=== PATIENT | female | born 1970 | race Caucasian/White ===

== ENCOUNTER 2024-01-04 22:16 | Inpatient (IN) | payer BC, SELFPAY ==
[2024-01-04] VITALS (9 sets, daily range): BP systolic 107–141; BP diastolic 59–90; BMI 20.6
[2024-01-04 14:07] LABS: % Basophils 0.4 % (0-2); % Eosinophils 0.8 % (0-6); % Immature Granulocytes 0.3 % (0-0.5); % Lymphocytes 16.1 % (20.5-51.1); % Monocytes 7.3 % (1.7-9.3); % Neutrophils 75.1 % (42.2-75.2); Absolute Basophils 0.1 10^3/uL (0-0.2); Absolute Eosinophils 0.1 10^3/uL (0-0.7); Absolute Monocytes 0.9 10^3/uL (0.1-0.6); Absolute Neutrophils 9.4 10^3/uL (1.4-6.5); Hematocrit 45.3 % (37.0-47.0); Hemoglobin 15.7 g/dL (12.0-16.0); Mean Corp Hgb Conc. 34.7 g/dL (33.0-37.0); Mean Corpuscular Hgb 28.6 pg (27.0-31.0); Mean Corpuscular Volume 82.7 fL (81.0-99.0); Mean Platelet Volume 10.2 fL (7.4-10.4); Nucleated Red Blood Cells % 0 %; Platelet Count 412 10^3/uL (130-400); Red Blood Cell Count 5.48 10^6/uL (4.20-5.40); White Blood Cell Count 12.5 10^3/uL (4.8-10.8)
[2024-01-04 14:25] LABS: ALT (SGPT) 22 U/L (0-35); AST (SGOT) 32 U/L (14-36); Albumin 4.7 g/dl (3.5-5.0); Alkaline Phosphatase 130 U/L (38-126); Blood Urea Nitrogen 15 mg/dl (7-17); Calcium 9.9 mg/dl (8.4-10.2); Carbon Dioxide 23 mmol/L (22-30); Chloride 101 mmol/L (98-107); Glucose 112 mg/dl (70-99); Lipase 299 U/L (23-300); Potassium 4.2 mmol/L (3.5-5.1); Sodium 134 mmol/L (135-145); Total Bilirubin 1.8 mg/dl (0.2-1.3); Total Protein 7.9 g/dl (6.3-8.2); eGFR > 60.00
--- NOTE | 2024-01-04 17:06 | ED.GENMED ---
History of Present Illness
General
Chief Complaint: Abdominal Symptoms
Source: patient
Exam Limitations: none
Time Seen by Provider: 01/04/24 17:06
Nursing documentation reviewed up to this point in time: agreed with
Travel History
Have you had any contact with someone who has COVID-19?: No
Do you have any symptoms of coronavirus? Fever > 100 degrees, chills, cough, shortness of breath, sore throat, loss of taste or smell, muscle aches, or headache?: No
History of Present Illness
History of Present Illness:
53-year-old female with history of hysterectomy, constipation states 2 nights ago she ate a large bag of almonds and since then she is to milligrams and increasing abdominal pain, and has had no bowel movement since. She tried 3 Dulcolax,
suppository, 2 fleets enemas with no bowel movement. She is also doubled over in pain yesterday and today anytime she tries to drink or eat anything she vomits it back up.
Past History
Past History
ED Past Surgical History: Gynecological (Hysterectomy) and Orthopedic
Social History
Tobacco: Non-smoker
Alcohol: Occasional
Personal:
Living: with family
Employment: Employed
Review of Systems
Review of Systems
Allergies reviewed?: Yes
All Other Systems: ROS reviewed and negative except as documented in HPI and ROS
Constitutional: Denies fever
Respiratory: Denies trouble breathing
Cardiac: Denies chest pain
ABD/GI: Reports abdominal pain, nausea, vomiting and constipated
: Denies dysuria or difficulty voiding
Musculoskeletal: Reports no symptoms
Skin: Reports no symptoms
Neurological: Reports no symptoms
Phy Exam
Physical Exam
Physical Exam:
GENERAL: No acute distress. A&Ox3.
CONSTITUTIONAL: Afebrile.
EYES: Clear, conjunctivae normal
ENMT: Dry mucus membranes
RESPIRATORY: Regular respirations, nonlabored, lungs clear.
CARDIOVASCULAR: Regular rate and rhythm, no murmurs, no rubs.
GI: Soft, generally tender to mild palpation, worse pain across upper abdomen, no audible bowel sounds BS
MUSCULOSKELETAL: Moves with ease. Well perfused.
SKIN: Warm, dry, pink
PSYCH: Normal mood and affect. Well kept, interactive and appropriate
NEUROLOGIC: Awake, alert and oriented. No focal neurological deficits
Course
Orders/Labs/Results
Orders:
Orders
01/04/24 14:00
Complete Blood Count/With Diff Urgent
Comprehensive Metabolic Panel Urgent
Lipase Urgent
01/04/24 Dinner
NPO
Allow oral meds: Yes
Allow clear liquids: Sips of Clears
01/04/24 17:02
CT Abd/Pel (IV only)-DH only Urgent
Comment: pain, No BM since ate large bag almonds 2 days ago
Reason For Exam: severe epigastric to gen abd pain
01/04/24 17:05
0.9% Sodium Chloride 1000 ml [Nss] 1,000 ml IV BOLUS
01/04/24 17:09
Ketorolac [Toradol] 15 mg IV NOW STA
Ondansetron Injectable [Zofran] 4 mg IV NOW STA
01/04/24 21:24
Admit/Transfer Patient As Directed
Co-Sign Provider:
Level of Care: Inpatient admission
Assign to:: Medical/Surgical
Physician / Group: polina
Diagnosis: enteritis
Reason for Hospitalization: enteritis
Expected length of stay greater than two midnights?: Yes
ELOS- Estimated Length of Stay in days: 2
I certify the patient meets the requirements for IP care: Yes
Code Status As Directed
Resuscitation Status: Full Code
01/04/24 21:27
Stool Culture Routine
DEBBI Source: Feces/Stool
Specimen Description:
01/04/24 23:01
0.9% Sodium Chloride 1000 ml [Nss] 1,000 ml IV 100 mls/hr
HYDROmorphone [Dilaudid] 0.5 mg IV Q4HPRN PRN
Ondansetron Injectable [Zofran] 4 mg IV Q6HPRN PRN
Pregabalin [Lyrica] 50 mg PO TID PRN
01/04/24 23:01
Activity As Directed
Activity Level: As Tolerated
Pneumatic Compression Sleeves As Directed
Type: Knee high
Vital Signs As Directed
Frequency: Per unit guidelines
DX Deep Vein Thrombosis Video Routine
01/05/24 06:00
Complete Blood Count/With Diff IN AM
Comprehensive Metabolic Panel IN AM
01/05/24 08:00
Celecoxib [Celebrex] 200 mg PO DAILY
Doxycycline [Vibramycin] 100 mg PO DAILY
Estradiol [Estrace] 0.5 mg PO DAILY
Abnormal Lab Results
01/04/24
14:00
WBC 12.5 H 10^3/uL
(4.8-10.8)
RBC 5.48 H 10^6/uL
(4.20-5.40)
Plt Count 412 H 10^3/uL
(130-400)
Absolute Neuts (auto) 9.4 H 10^3/uL
(1.4-6.5)
Absolute Monos (auto) 0.9 H 10^3/uL
(0.1-0.6)
Lymphocytes % 16.1 L %
(20.5-51.1)
Sodium 134 L mmol/L
(135-145)
Glucose 112 H mg/dl
(70-99)
Total Bilirubin 1.8 H mg/dl
(0.2-1.3)
Alkaline Phosphatase 130 H U/L
(38-126)
01/04/24 14:00
01/04/24 14:00
Vital Signs
Initial and Last Documented VS:
Initial Vital Signs
Temp Pulse Resp BP Pulse Ox
98.4 F 95 16 141/90 98
01/04/24 13:50 01/04/24 13:50 01/04/24 13:50 01/04/24 13:50 01/04/24 13:50
Last Documented Vital Signs
Temp Pulse Resp BP Pulse Ox
98.4 F 78 16 107/62 99
01/04/24 13:50 01/04/24 21:21 01/04/24 13:50 01/04/24 23:00 01/04/24 23:45
MDM/Problems Addressed
Differential Diagnosis Includes:
Bowel obstruction, constipation
MDM/Problems Addressed:
53-year-old female with history of hysterectomy, constipation states 2 nights ago she ate a large bag of almonds and since then she is to milligrams and increasing abdominal pain, and has had no bowel movement since. She tried 3 Dulcolax,
suppository, 2 fleets enemas with no bowel movement. She is also doubled over in pain yesterday and today anytime she tries to drink or eat anything she vomits it back up.
01/04/2024 1707 PM
CBC, CMP, mildly elevated WBC otherwise no clinically significant abnormality.
Lipase within normal limits
01/04/20241957 PM
CT abdomen pelvis with IV only contrast radiology report read: IMPRESSION: There is significant abnormal wall thickening and enhancement involving small bowel loops, and there appears to be diffuse involvement, although greater involving the mid to
distal small bowel. Findings are compatible with enteritis. Infectious enteritis could be the leading consideration. However, inflammatory bowel disease such as Crohn's disease could also result in this appearance.
There is a small to moderate amount of mesenteric edema as well as free fluid within the pelvis. Small amount of free fluid anterior to the liver in the right upper quadrant.
Distended gallbladder with no evidence for calcified gallstones.
01/04/20242038 PM
Patient is comfortable but does not feel comfortable going home as the pain comes back frequently.
No vomiting since arrival
Plan: Admit: Abdominal pain, mesenteric edema, free fluid within the pelvis.
Case discussed with Dr. Hinkle who agrees with plan
Hospitalist notified of admission
�
*Critical Care Note
Total Time (30-74mins, 75-104mins- exclusive of procedures): Not Applicable
ED Attending Note
-
Portions of this chart may have been created with voice recognition software.� Occasional wrong word or��sound alike� substitutions may have occurred due to the inherent limitations of voice recognition software.
Discharge Plan
Departure
Patient Disposition: Admit
Date of Disposition: 01/04/24
Time of Disposition: 20:04
Admit to: Med/Surg
Presentation/result/management discussed w/ accepting MD/DO: Hospitalist
Condition: Fair
Discharge Problem:
Enteritis, mesenteric edema, Abdominal pain
Interventions
Interventions:
*Risk Screen - Suicide Last Done: 01/04/24 17:19
*General Assessment Last Done: 01/04/24 17:19
*Neglect/Abuse Screening Last Done: 01/04/24 17:19
ED- Fall Risk Assessment Last Done: 01/04/24 17:19
*ED COVID-19 Vaccine History Last Done: 01/04/24 13:50
*Nursing Disposition Last Done: 01/04/24 23:47
LQ-Giiosl-Jfnvcvwqac Assessment Last Done: 01/04/24 17:19
Discharge Date and Time
Discharge Date/Time: 01/04/24 23:47
[2024-01-04] MEDS: NSS 1000 IV (17:14)
[2024-01-04] MEDS: ZOFRAN 4 MG IV (17:16)
[2024-01-04] MEDS: TORADOL 15 MG IV (17:17)
--- NOTE | 2024-01-04 21:28 | HPS.HSE ---
Family Physician
-
Family Physician: Sly Gottlieb PA-C
Chief Complaint
-
abdominal pain
History of Present Illness
53-year-old female past medical history of cervical cancer status hysterectomy in 2002, ovarian cyst removal, peanut allergy, constipation, chronic back pain, rosacea presenting with abdominal pain starting 2 days ago after eating a large bag of
almonds. Pain got worse since then described as waves of pain across her belly. She had a few episodes of vomiting since then when she tried to eat or drink. She denies any bowel movement afterwards and try taking 3 Dulcolax, suppository, 2 Fleet
enema with a small bowel movement this morning. Stool was dark but she denies any mucus or blood in the stool. She had chills but denied any fever.
Patient gets abdominal pain and bloating if she eats any peanut products.
She denies any recent travel history. She denies eating any restaurant or leftover food.
She has a sister with colitis which she thinks may be ulcerative colitis.
Denies any smoking or alcohol use or marijuana or any other drugs.
Medical History
Past Medical History
Past Medical History: Reports Other (cervical cancer status hysterectomy in 2002, ovarian cyst removal, peanut allergy, constipation, chronic back pain, rosacea)
Past Surgical History: Reports Other
Social History
Tobacco: Non-smoker
Alcohol: None
Drug: None
Family History
Family History: Not pertinent
Allergies / Home Medications
Allergies reflects when Allergies were last updated in [facility].
Home Medications with original date entered in [facility]
Allergy/Medication List:
Allergies
Allergy/AdvReac Type Severity Reaction Status Date / Time
No Known Allergies Allergy Verified 01/04/24 13:52
Home Medications
celecoxib 200 mg capsule 200 mg PO DAILY 01/04/24
doxycycline monohydrate 100 mg capsule 100 mg PO DAILY 01/04/24
estradiol 0.5 mg tablet 0.5 mg PO DAILY 01/04/24
pregabalin 50 mg capsule 50 mg PO TID PRN back spasms 01/04/24
Review of Systems
-
History Source: Patient
A 12 point ROS was completed and negative except as noted: Yes
Constitutional: Reports No Symptoms
EENT: Reports No Symptoms
Respiratory: Reports No Symptoms
Cardiac: Reports No Symptoms
Abdomen/GI: Reports No Symptoms
: Reports No Symptoms
Musculoskeletal: Reports No Symptoms
Skin: Reports No Symptoms
Neurological: Reports No Symptoms
Endocrine: Reports No Symptoms
Hematologic/Lymphatic: Reports No Symptoms
Psych: Reports No Symptoms
Physical Exam
Vital Signs
Vital Signs
Temp Pulse Resp BP Pulse Ox
98.4 F 78 16 114/59 98
01/04/24 13:50 01/04/24 21:21 01/04/24 13:50 01/04/24 21:00 01/04/24 21:15
Physical Exam
General: Well Developed, Well Nourished and No Apparent Distress
HEENT: NormoCephalic, Moist mucous membranes and Atraumatic
Respiratory: Clear
Cardiac: S1/S2 and Regular Rhythm; No Murmur or Rub
GI: Soft, Non Distended, Normal Bowel Sounds and Tender; No Organomegaly
Rectal: Deferred by Provider
Musculoskeletal: No Clubbing, No Cyanosis and No Edema
Skin: No Rash
Neuro: Nonfocal/grossly intact
Laboratory Results
-
01/04/24 14:00
01/04/24 14:00
Laboratory Results
Total Bilirubin 1.8 mg/dl (0.2-1.3) H 01/04/24 14:00
AST 32 U/L (14-36) 01/04/24 14:00
ALT 22 U/L (0-35) 01/04/24 14:00
Alkaline Phosphatase 130 U/L (38-126) H 01/04/24 14:00
Lipase 299 U/L (23-300) 01/04/24 14:00
Data Reviewed
-
Lab Data: Labs Reviewed by me
Old Records: Reviewed
Impression/Plan
-
IMPRESSION:
PLAN:
# Acute enteritis likely infectious versus inflammatory
# Constipation
-Leukocytosis on labs
-CT abdomen shows diffusely abnormal small bowel loops with wall thickening and enhancement with small to moderate mesenteric edema
-N.p.o.
-IV fluids
-Zofran, Dilaudid for nausea and pain
-Check stool culture if able
-Consider antibiotic and GI consult if no improvement with conservative measures
Cervical cancer status post hysterectomy 2002
Ovarian cyst removal
Chronic back pain
-Continue celecoxib, pregabalin
Rosacea
-Continue doxycycline
Full code
DVT prophylaxis�SCDs
N.p.o.
[2024-01-05 00:10] VITALS: BP 134/71
[2024-01-05 00:16] VITALS: BMI 20.5
[2024-01-05] MEDS: NSS 1000 IV ×2 (00:54→11:24)
[2024-01-05] MEDS: DILAUDID 0.5 MG IV ×3 (01:15→18:11)
[2024-01-05 05:51] LABS: % Basophils 0.7 % (0-2); % Eosinophils 3.3 % (0-6); % Immature Granulocytes 0.1 % (0-0.5); % Lymphocytes 20.3 % (20.5-51.1); % Monocytes 9.3 % (1.7-9.3); % Neutrophils 66.3 % (42.2-75.2); Absolute Basophils 0.1 10^3/uL (0-0.2); Absolute Eosinophils 0.2 10^3/uL (0-0.7); Absolute Lymphocytes 1.4 10^3/uL (1.2-3.4); Absolute Monocytes 0.7 10^3/uL (0.1-0.6); Absolute Neutrophils 4.6 10^3/uL (1.4-6.5); Hematocrit 35.6 % (37.0-47.0); Hemoglobin 12.2 g/dL (12.0-16.0); Mean Corp Hgb Conc. 34.3 g/dL (33.0-37.0); Mean Corpuscular Hgb 28.5 pg (27.0-31.0); Mean Corpuscular Volume 83.2 fL (81.0-99.0); Mean Platelet Volume 10.3 fL (7.4-10.4); Nucleated Red Blood Cells % 0 %; Platelet Count 273 10^3/uL (130-400); Red Blood Cell Count 4.28 10^6/uL (4.20-5.40); Red Cell Dist. Width 13.2 % (11.5-14.5)
[2024-01-05 06:06] LABS: ALT (SGPT) 18 U/L (0-35); AST (SGOT) 25 U/L (14-36); Albumin 3.3 g/dl (3.5-5.0); Alkaline Phosphatase 83 U/L (38-126); Blood Urea Nitrogen 18 mg/dl (7-17); Calcium 8.5 mg/dl (8.4-10.2); Carbon Dioxide 24 mmol/L (22-30); Chloride 106 mmol/L (98-107); Estimated Creatinine Clearance 114 ml/min; Glucose 81 mg/dl (70-99); Potassium 3.9 mmol/L (3.5-5.1); Sodium 135 mmol/L (135-145); Total Bilirubin 1.5 mg/dl (0.2-1.3); Total Protein 5.9 g/dl (6.3-8.2); eGFR > 60.00
[2024-01-05 07:34] VITALS: BP 122/70
[2024-01-05] MEDS: VIBRAMYCIN 100 MG PO (08:22)
[2024-01-05] MEDS: CELEBREX 200 MG PO (08:22)
[2024-01-05] MEDS: ESTRACE 0.5 MG PO (08:23)
--- NOTE | 2024-01-05 11:15 | W.PN.HOSP.TC ---
Today's Communication/Plan
-
see bold
Assessment / Plan
Assessment / Plan
Gen: NAD, AAOx3.
Eyes: EOMI, PERRLA, no scleral icterus.
Neck: supple.
CV: RRR, +S1/S2, no m/r/g.
Resp: CTAB, no rales, wheezes, or rhonchi.
Abd: +BS, soft, tenderness to palpation greatest in the left, ND
Skin: No rashes.
Neuro: CN 2-12 intact, non-focal.
Psych: Normal mood and affect.
CT A/P: There is significant abnormal wall thickening and enhancement involving small bowel loops, and there appears to be diffuse involvement, although greater involving the mid to distal small bowel. Findings are compatible with enteritis.
Infectious enteritis could be the leading consideration. However, inflammatory bowel disease such as Crohn's disease could also result in this appearance. There is a small to moderate amount of mesenteric edema as well as free fluid within the
pelvis. Small amount of free fluid anterior to the liver in the right upper quadrant. Distended gallbladder with no evidence for calcified gallstones.
Acute enteritis:
-with Constipation
-CT A/P above
-likely infectious versus inflammatory
-Leukocytosis, POA, resolved
-CT abdomen shows diffusely abnormal small bowel loops with wall thickening and enhancement with small to moderate mesenteric edema
-NPO/IVFs
-Zofran, Dilaudid for nausea and pain
-Check stool culture if able (no BM since admission)
-c/s GI
Other problems:
Cervical cancer status post hysterectomy 2002
Ovarian cyst removal
Chronic back pain: Continue celecoxib, pregabalin
Rosacea: Continue doxycycline
FULL/SCDs
Anticipated Discharge: 24 - 48 hours
Subjective/Interval History
-
Date of Service: January 05, 2024
Still with abdominal pain and cramping.
Objective Data
-
Labs:
Laboratory Results
01/05/24
05:30
WBC 7.0
Hgb 12.2 D
Hct 35.6 L
Plt Count 273 D
Sodium 135
Potassium 3.9
Chloride 106
Carbon Dioxide 24
BUN 18 H
Creatinine 0.6
Glucose 81
Calcium 8.5
Total Bilirubin 1.5 H
AST 25
ALT 18
Alkaline Phosphatase 83
Vital Signs:
Vital Signs
Temp Pulse Resp BP Pulse Ox
98.9 F 78 17 122/70 97
01/05/24 07:34 01/05/24 07:34 01/05/24 07:34 01/05/24 07:34 01/05/24 08:15
I&O
01/04/24 01/05/24 01/06/24
06:59 06:59 06:59
Intake Total 600 / 600
Balance 600 / 600
--- NOTE | 2024-01-05 11:48 | CON.GI ---
Addendum entered and electronically signed by Chery Wood Do, MD 01/05/24 15:02:
I saw and examined the patient.
The CHEMICAL WASTE MANAGEMENT TECHNICIAN's note was reviewed and I agree with the note.
Comment: Ramya Castillo is a 53yo W with h/o cervical ca s/p hysterectomy and chronic abx use for rosacea who was admitted for acute epigastric abd pain. She denies any triggers other than recently eating almonds. She has no change in diet, new
meds, or travel. She feels certain positions laying worsens the pain. She used OTC bisacodyl, enema and miralax without improvement. Exam VSS, diffuse TTP in epigastric area. CTAP IV contrast There is significant abnormal wall thickening and
enhancement involving small bowel loops, and there appears to be diffuse involvement, although greater involving the mid to distal small bowel. Findings are compatible with enteritis. Infectious enteritis could be the leading consideration. However,
inflammatory bowel disease such as Crohn's disease could also result in this appearance.
Impression
- Acute enteritis of small bowel with pain
ddx includes infectious, less likely crohns given acute onset and normal Hbg
- h/o cervical ca s/p hysterectomy
- Chronic low back pain
- cLBP
Recommendations
- Stool studies pending collection
- Check fecal calprotectin
- C/w IVF and bowel rest
- Pain management per primary team
- Per pt colonoscopy at age 50 was unremarkable at [facility]
Will follow with you
Original Note:
Consultation
-
Date/Time Consultation Requested: 01/05/24 1120
Date/Time Consultation Performed: 01/05/24 1140
Requesting Provider: Robert Tomas MD
Performing Provider: THIERRY Garibay, Chery Ramirez MD
Reason for Consultation: enteritis
Medical History
Chief Complaint / HPI
Chief Complaint: abdominal pain
History of Present Illness:
Pt is a 53yo with hx cervical CA with prior hysterectomy, ovarian cyst removal, arthritis with chronic Celebrex use, constipation, chronic back pain, rosacea with chronic Doxycycline use, peanut allergy with onset of abdominal pain after eating
almonds. Pt also related sister with ? ulcerative colitis. Ct on admission concern for wall thickening and enhancement of SB loops greater mid to distal SB concern for enteritis. Also noted small to moderate mesenteric edema as well as free
fluid in pelvis and distended Gallbladder.
Pt states she will get intermittent bloating and abdominal pain after eating peanuts. This episode was worse with nausea, vomiting then feeling of constipation. She tried to takes laxatives but vomited miralax and still no stools since that
time. Still still persists with some upper abdominal pain and limited ability to tolerate even clear liquids. She does have some chronic constipation and noted small amount of dark stool after laxative but minimal stools since admission. Last
colonoscopy normal about 2 years ago recall as normal.
Past Medical History
Past Medical History: Cancer (cerivical ca) and Other (chronic back pain, constipation, rosacea, ? peanut allergy)
Past Surgical History: Gynecological (hysterectomy)
Social History
Tobacco: Non-Smoker
Alcohol: Occasional
Drug: None
Personal: Other (fiancee)
Living: Other (ancee)
Employment: Employed
Family History
Family History: Other (sister with polyps and ? ulcerative colitis )
Allergies / Home Medications
Allergy/AdvReac Type Severity Reaction Status Date / Time
No Known Allergies Allergy Verified 01/04/24 13:52
Medication Instructions Recorded
celecoxib 200 mg capsule 200 mg PO DAILY 01/04/24
doxycycline monohydrate 100 mg 100 mg PO DAILY 01/04/24
capsule
estradiol 0.5 mg tablet 0.5 mg PO DAILY 01/04/24
pregabalin 50 mg capsule 50 mg PO TID PRN back spasms 01/04/24
Review of Systems
-
History Source: Patient
Constitutional: Reports Weight Loss (few lbs )
EENT: Reports No Symptoms
Respiratory: Reports No Symptoms
Cardiac: Reports No Symptoms
Abdomen/GI: Reports Abdominal Pain, Nausea, Vomiting and Constipated
: Reports No Symptoms
Musculoskeletal: Reports Other (chronic back pain)
Skin: Reports No Symptoms
Neurological: Reports No Symptoms
Endocrine: Reports No Symptoms
Hematologic/Lymphatic: Reports No Symptoms
Vital Signs
Temp Pulse Resp BP Pulse Ox
98.9 F 78 17 122/70 97
01/05/24 07:34 01/05/24 07:34 01/05/24 07:34 01/05/24 07:34 01/05/24 08:15
Physical Exam
Exam
General: Well Developed, Well Nourished and Other (still with some abdominal pain )
HEENT: Normocephalic and Anicteric
Respiratory: Clear
Cardiac: Regular Rhythm
GI: Soft, Non Tender and Non Distended
Musculoskeletal: No Clubbing and No Cyanosis
Skin: Warm and Dry
Neuro: Awake, Alert and AO x 3
Psych: Calm
Results
WBC 7.0 10^3/uL (4.8-10.8) 01/05/24 05:30
Hgb 12.2 g/dL (12.0-16.0) D 01/05/24 05:30
Hct 35.6 % (37.0-47.0) L 01/05/24 05:30
MCV 83.2 fL (81.0-99.0) 01/05/24 05:30
Plt Count 273 10^3/uL (130-400) D 01/05/24 05:30
Absolute Neuts (auto) 4.6 10^3/uL (1.4-6.5) 01/05/24 05:30
Sodium 135 mmol/L (135-145) 01/05/24 05:30
Potassium 3.9 mmol/L (3.5-5.1) 01/05/24 05:30
Chloride 106 mmol/L (98-107) 01/05/24 05:30
Carbon Dioxide 24 mmol/L (22-30) 01/05/24 05:30
BUN 18 mg/dl (7-17) H 01/05/24 05:30
Creatinine 0.6 mg/dL (0.6-1.0) 01/05/24 05:30
Calcium 8.5 mg/dl (8.4-10.2) 01/05/24 05:30
Total Bilirubin 1.5 mg/dl (0.2-1.3) H 01/05/24 05:30
AST 25 U/L (14-36) 01/05/24 05:30
ALT 18 U/L (0-35) 01/05/24 05:30
Alkaline Phosphatase 83 U/L (38-126) 01/05/24 05:30
Lipase 299 U/L (23-300) 01/04/24 14:00
Diagnostic Image Results:
CT Abd/Pel�
IMPRESSION: There is significant abnormal wall thickening and enhancement involving small bowel loops, and there appears to be diffuse involvement, although greater involving the mid to distal small bowel. Findings are compatible with enteritis.
Infectious enteritis could be the leading consideration. However, inflammatory bowel disease such as Crohn's disease could also result in this appearance.
There is a small to moderate amount of mesenteric edema as well as free fluid within the pelvis. Small amount of free fluid anterior to the liver in the right upper quadrant.
Distended gallbladder with no evidence for calcified gallstones.
Prior GI Procedures:
EGD: none
Colonoscopy: 2 years ago normal
Assessment / Plan
-
Pt is a 53yo with hx cervical CA with prior hysterectomy, ovarian cyst removal, arthritis with chronic Celebrex use, constipation, chronic back pain, rosacea with chronic Doxycycline use, peanut allergy with onset of abdominal pain after eating
almonds. Pt also related sister with ? ulcerative colitis. Ct on admission concern for wall thickening and enhancement of SB loops greater mid to distal SB concern for enteritis. Also noted small to moderate mesenteric edema as well as free
fluid in pelvis and distended Gallbladder.
-enteritis
-nausea/vomiting
-constipation
other medical problems:
-cervical CA with prior hysterectomy
-ovarian cyst removal
-arthritis on chronic Celebrex
-rosacea on chronic Doxy
PLAN:
etiology of enteritis related to infectious etiology, IBD with ? family hx UC, medication effect with chronic Doxy and Celebrex vs other
cont supportive care with IVF, diet as tolerated
consider MRE OP vs Inpatient if not improving
consider eventual repeat colonoscopy if not improving to eval distal SB for signs of chronic IBD
pain control per hospitalist
discussed side effect of chronic Doxy and celebrex use
-
-
Thank you for consultation and allowing me to participate in the patient's care. Please call the transplant surgeon GI physician during the after hours with any questions or concerns.
[2024-01-05 15:00] VITALS: BP 111/66
[2024-01-05 23:49] VITALS: BP 101/60
[2024-01-06] MEDS: NSS 1000 IV ×2 (02:21→18:28)
[2024-01-06] MEDS: DILAUDID 0.5 MG IV (06:48)
[2024-01-06 07:00] VITALS: BP 114/71
[2024-01-06] MEDS: VIBRAMYCIN 100 MG PO (08:19)
[2024-01-06] MEDS: ESTRACE 0.5 MG PO (08:19)
[2024-01-06] MEDS: CELEBREX 200 MG PO (08:19)
--- NOTE | 2024-01-06 08:32 | CM ---
patient lives with in a 2 story house,she is totally independent and has never had a vn or been to ip rehab in the past.patient with a hx of cervical ca sp hysterectomy,chronic abx use for tx of rosacea and constipation is adm with abd
pain.she is on po abx.patient will have no needs when discharged home.
--- NOTE | 2024-01-06 09:45 | W.PN.GI.CBS2 ---
Addendum entered and electronically signed by Starr Mcconnell DO 01/06/24 17:55:
Patient seen and examine independently of THIERRY. I agree with her note with my additions below
Avelina is a 53-year-old female with no significant past medical history other than arthritis and rosacea taking Celebrex and doxycycline who came in with acute onset abdominal pain with nausea and vomiting but no diarrhea. At baseline she has
some chronic constipation and moves her bowels every 2 to 3 days with [place] stool scale #1. She takes MiraLAX on occasion for this. She is up-to-date with colonoscopy. She has no chronic GI symptoms other than constipation.
CT scan here in the emergency room with IV contrast only on 04 January shows diffuse small bowel thickening, initially had a leukocytosis which has since resolved.. She was started on clear liquid diet tonight and is tolerating it well. She feels
like she would like to try and have a bowel movement and has been drinking MiraLAX and did have some mild relief with the suppository.
Would avoid Dilaudid unless her pain is severe, consider sending like tramadol
Check CRP in the morning
No significant stools to collect
Advance diet to soft for the morning
If she tolerates a soft diet and pain is controllable, okay for discharge as this is most likely infectious considering its acuity
Original Note:
Today's Communication / Plan
-
CBC, BMP
Continue liquids as tolerated
Assessment / Plan
-
Pt is a 53yo with hx cervical CA with prior hysterectomy, ovarian cyst removal, arthritis with chronic Celebrex use, constipation, chronic back pain, rosacea with chronic Doxycycline use, peanut allergy with onset of abdominal pain after eating
almonds. Pt also related sister with ? ulcerative colitis. Ct on admission concern for wall thickening and enhancement of SB loops greater mid to distal SB concern for enteritis. Also noted small to moderate mesenteric edema as well as free
fluid in pelvis and distended Gallbladder.
-enteritis
-nausea/vomiting
-constipation
other medical problems:
-cervical CA with prior hysterectomy
-ovarian cyst removal
-arthritis on chronic Celebrex
-rosacea on chronic Doxy
PLAN:
-Repeat CBC, BMP this am
-If with increase in abd pain or distention repeat abdominal imaging.
-Check fecal calpro, stool studies
-etiology of enteritis related to infectious etiology, IBD with ? family hx UC, medication effect with chronic Doxy and Celebrex vs other
-consider MRE OP vs Inpatient if not improving
-consider eventual repeat colonoscopy if not improving to eval distal SB for signs of chronic IBD
-pain control per hospitalist, limit narcotics if possible
-discussed side effect of chronic Doxy and celebrex use
Subjective
Subjective
Date of Service: January 06, 2024
Patient states that she has decreased pain today. She is tolerating some sips of water. She has no nausea or vomiting. She is passing some flatus but no BM yet. She states that her discomfort has moved from the epigastric area to more of the central
abdomen area. She was able to ambulate the hallways and she heard 'gurgling in her abdomen'. She continues on IVF. No labs today.
Objective
Data Reviewed
Laboratory Data:
Laboratory Results
01/05/24 05:30
01/05/24 05:30
Laboratory Results
Total Bilirubin 1.5 mg/dl (0.2-1.3) H 01/05/24 05:30
AST 25 U/L (14-36) 01/05/24 05:30
ALT 18 U/L (0-35) 01/05/24 05:30
Alkaline Phosphatase 83 U/L (38-126) 01/05/24 05:30
Lipase 299 U/L (23-300) 01/04/24 14:00
Vital Signs and I&O:
Vital Signs
Temp Pulse Resp BP Pulse Ox
98.3 F 74 18 114/71 99
01/06/24 07:00 01/06/24 07:00 01/06/24 07:00 01/06/24 07:00 01/06/24 07:00
I&O
01/05/24 01/06/24 01/07/24
06:59 06:59 06:59
Intake Total 600 / 600 720 / 720
Balance 600 / 600 720 / 720
Physical Exam
Physical Exam
HEENT: Anicteric
Cardiology: Normal Sinus Rhythm
Pulmonary: Clear
GI: Soft, Non Distended, Tender (mild periumbilical tenderness) and Other (hypoactive bowel sounds)
Extremities: No Edema
Neuro: Non Focal
--- NOTE | 2024-01-06 09:51 | W.PN.HOSP.TC ---
Today's Communication/Plan
-
see bold
Assessment / Plan
Assessment / Plan
Gen: NAD, AAOx3.
Eyes: EOMI, PERRLA, no scleral icterus.
Neck: supple.
CV: Remains RRR, +S1/S2, no m/r/g.
Resp: Remains CTAB, no rales, wheezes, or rhonchi.
Abd: +BS, soft, tenderness to palpation greatest in the right, ND
Skin: No rashes.
Neuro: CN 2-12 intact, non-focal.
Psych: Normal mood and affect.
CT A/P: There is significant abnormal wall thickening and enhancement involving small bowel loops, and there appears to be diffuse involvement, although greater involving the mid to distal small bowel. Findings are compatible with enteritis.
Infectious enteritis could be the leading consideration. However, inflammatory bowel disease such as Crohn's disease could also result in this appearance. There is a small to moderate amount of mesenteric edema as well as free fluid within the
pelvis. Small amount of free fluid anterior to the liver in the right upper quadrant. Distended gallbladder with no evidence for calcified gallstones.
Acute enteritis:
-with Constipation
-CT A/P above
-likely infectious versus inflammatory
-Leukocytosis, POA, resolved
-CT abdomen shows diffusely abnormal small bowel loops with wall thickening and enhancement with small to moderate mesenteric edema
-NPO/IVFs
-Zofran, Dilaudid for nausea and pain
-Check stool studies if able (including calprotectin)
-GI following
-Start MiraLAX 17 g twice daily
Other problems:
Cervical cancer status post hysterectomy 2002
Ovarian cyst removal
Chronic back pain: Continue celecoxib, pregabalin
Rosacea: Continue doxycycline
FULL/SCDs
Anticipated Discharge: Within 24 hours
Subjective/Interval History
-
Date of Service: January 06, 2024
Patient complains of constipation. She is trying to have bowel movements but cannot.
Objective Data
-
Vital Signs:
Vital Signs
Temp Pulse Resp BP Pulse Ox
98.3 F 74 18 114/71 99
01/06/24 07:00 01/06/24 07:00 01/06/24 07:00 01/06/24 07:00 01/06/24 07:00
I&O
01/05/24 01/06/24 01/07/24
06:59 06:59 06:59
Intake Total 600 / 600 720 / 720
Balance 600 / 600 720 / 720
[2024-01-06 10:54] LABS: Hematocrit 34.2 % (37.0-47.0); Hemoglobin 11.6 g/dL (12.0-16.0); Mean Corp Hgb Conc. 33.9 g/dL (33.0-37.0); Mean Corpuscular Hgb 28.5 pg (27.0-31.0); Mean Platelet Volume 10.3 fL (7.4-10.4); Platelet Count 260 10^3/uL (130-400); Red Blood Cell Count 4.07 10^6/uL (4.20-5.40); Red Cell Dist. Width 12.7 % (11.5-14.5); White Blood Cell Count 4.5 10^3/uL (4.8-10.8)
[2024-01-06] MEDS: MIRALAX 17 GRAMS PO ×2 (11:27→20:04)
[2024-01-06 11:37] LABS: Blood Urea Nitrogen 15 mg/dl (7-17); Calcium 8.5 mg/dl (8.4-10.2); Carbon Dioxide 19 mmol/L (22-30); Chloride 104 mmol/L (98-107); Estimated Creatinine Clearance 114 ml/min; Glucose 59 mg/dl (70-99); Potassium 3.9 mmol/L (3.5-5.1); Sodium 132 mmol/L (135-145); eGFR > 60.00
[2024-01-06 14:14] VITALS: BMI 20.5
[2024-01-06 15:00] VITALS: BP 125/73
[2024-01-06] MEDS: ULTRAM 50 MG PO (19:29)
[2024-01-06 23:10] VITALS: BP 90/48
[2024-01-07 07:30] VITALS: BP 117/64
[2024-01-07] MEDS: CELEBREX 200 MG PO (08:25)
[2024-01-07] MEDS: VIBRAMYCIN 100 MG PO (08:25)
[2024-01-07] MEDS: MIRALAX 17 GRAMS PO ×2 (08:26→20:01)
[2024-01-07] MEDS: ESTRACE 0.5 MG PO (08:26)
[2024-01-07] MEDS: ULTRAM 50 MG PO (08:26)
--- NOTE | 2024-01-07 09:16 | W.PN.GI.CBS2 ---
Today's Communication / Plan
-
awaiting soft diet trial
suppository
Assessment / Plan
-
Lourdes neumann is a 53-year-old female with no significant past medical history other than arthritis and rosacea taking Celebrex and doxycycline who came in with acute onset abdominal pain with nausea and vomiting but no diarrhea after eating almonds.�
At baseline she has some chronic constipation and moves her bowels every 2 to 3 days with [place] stool scale #1.� She takes MiraLAX on occasion for this.� She is up-to-date with colonoscopy.� She has no chronic GI symptoms other than constipation.
CT scan here in the emergency room with IV contrast only on 04 January shows diffuse small bowel thickening, initially had a leukocytosis which has since resolved
-enteritis
-nausea/vomiting
-constipation
other medical problems:
-cervical CA with prior hysterectomy
-ovarian cyst removal
-arthritis on chronic Celebrex
-rosacea on chronic Doxy
No significant stools to collect
Advanced diet to soft for the morning - she hasn't received it yet
If she tolerates a soft diet and pain is controllable, okay for discharge as this is most likely infectious considering its acuity - may need some tramadol to go and a work note for a couple of days
will give her a suppository today
CRP pending
Total Time Spent with Patient (in minutes): 15
Subjective
Subjective
Date of Service: January 07, 2024
Objective
Data Reviewed
Laboratory Data:
Laboratory Results
01/06/24 10:16
01/06/24 10:16
Laboratory Results
Total Bilirubin 1.5 mg/dl (0.2-1.3) H 01/05/24 05:30
AST 25 U/L (14-36) 01/05/24 05:30
ALT 18 U/L (0-35) 01/05/24 05:30
Alkaline Phosphatase 83 U/L (38-126) 01/05/24 05:30
Lipase 299 U/L (23-300) 01/04/24 14:00
Vital Signs and I&O:
Vital Signs
Temp Pulse Resp BP Pulse Ox
98.4 F 66 16 117/64 100
01/07/24 07:30 01/07/24 07:30 01/07/24 07:30 01/07/24 07:30 01/07/24 07:30
I&O
01/06/24 01/07/24 01/08/24
06:59 06:59 06:59
Intake Total 720 / 720 1919
Balance 720 / 720 1919
--- NOTE | 2024-01-07 09:42 | W.PN.HOSP.TC ---
Today's Communication/Plan
-
see bold
Assessment / Plan
Assessment / Plan
Gen: NAD, AAOx3.
Eyes: EOMI, PERRLA, no scleral icterus.
Neck: supple.
CV: continues to remain RRR, +S1/S2, no m/r/g.
Resp: continues to remain CTAB, no rales, wheezes, or rhonchi.
Abd: +BS, soft, tenderness to palpation greatest in the periumbilical region, ND
Skin: No rashes.
Neuro: CN 2-12 intact, non-focal.
Psych: Normal mood and affect.
CT A/P: There is significant abnormal wall thickening and enhancement involving small bowel loops, and there appears to be diffuse involvement, although greater involving the mid to distal small bowel. Findings are compatible with enteritis.
Infectious enteritis could be the leading consideration. However, inflammatory bowel disease such as Crohn's disease could also result in this appearance. There is a small to moderate amount of mesenteric edema as well as free fluid within the
pelvis. Small amount of free fluid anterior to the liver in the right upper quadrant. Distended gallbladder with no evidence for calcified gallstones.
Acute enteritis:
-with Constipation
-CT A/P above
-likely infectious versus inflammatory
-Leukocytosis, POA, resolved
-CT abdomen shows diffusely abnormal small bowel loops with wall thickening and enhancement with small to moderate mesenteric edema
-was NPO/IVFs, diet advanced to soft
-Zofran, Dilaudid for nausea and pain
-Check stool studies if able (including calprotectin)
-GI following
-cont MiraLAX 17 g twice daily
-glycerin suppository today
Other problems:
Hyponatremia, mild
Cervical cancer status post hysterectomy 2002
Ovarian cyst removal
Chronic back pain: Continue celecoxib, pregabalin
Rosacea: Continue doxycycline
FULL/SCDs
Anticipated Discharge: Within 24 hours
Subjective/Interval History
-
Date of Service: January 07, 2024
Still with abd pain, no BM.
Objective Data
-
Vital Signs:
Vital Signs
Temp Pulse Resp BP Pulse Ox
98.4 F 66 16 117/64 100
01/07/24 07:30 01/07/24 07:30 01/07/24 07:30 01/07/24 07:30 01/07/24 07:30
I&O
01/06/24 01/07/24 01/08/24
06:59 06:59 06:59
Intake Total 720 / 720 1919
Balance 720 / 720 1919
[2024-01-07] MEDS: GLYCERIN SUPPOSITORY ADULT 1 SUPP RECTAL (10:54)
[2024-01-07] MEDS: NSS 1000 IV (10:56)
[2024-01-07 16:00] VITALS: BP 100/64
[2024-01-07 23:15] VITALS: BP 111/70
[2024-01-08 07:00] VITALS: BP 109/70
[2024-01-08] MEDS: CELEBREX 200 MG PO (08:47)
[2024-01-08] MEDS: MIRALAX 17 GRAMS PO (08:48)
[2024-01-08] MEDS: VIBRAMYCIN 100 MG PO (08:48)
[2024-01-08] MEDS: ESTRACE 0.5 MG PO (08:48)
--- NOTE | 2024-01-08 09:55 | W.PN.HOSP.TC ---
Today's Communication/Plan
-
d/c
Assessment / Plan
Assessment / Plan
Gen: NAD, AAOx3.
Eyes: remains EOMI, PERRLA, no scleral icterus.
Neck: supple.
CV: RRR, +S1/S2, no m/r/g.
Resp: CTAB, no rales, wheezes, or rhonchi.
Abd: +BS, soft, mild tenderness to palpation, ND
Skin: No rashes.
Neuro: CN 2-12 intact, non-focal.
Psych: Normal mood and affect.
CT A/P: There is significant abnormal wall thickening and enhancement involving small bowel loops, and there appears to be diffuse involvement, although greater involving the mid to distal small bowel. Findings are compatible with enteritis.
Infectious enteritis could be the leading consideration. However, inflammatory bowel disease such as Crohn's disease could also result in this appearance. There is a small to moderate amount of mesenteric edema as well as free fluid within the
pelvis. Small amount of free fluid anterior to the liver in the right upper quadrant. Distended gallbladder with no evidence for calcified gallstones.
Acute enteritis:
-with Constipation
-CT A/P above
-likely infectious versus inflammatory
-Leukocytosis, POA, resolved
-CT abdomen shows diffusely abnormal small bowel loops with wall thickening and enhancement with small to moderate mesenteric edema
-was NPO/IVFs, diet advanced to soft
-Zofran, Dilaudid for nausea and pain
-Check stool studies if able (including calprotectin)
-GI following
-cont MiraLAX 17 g twice daily
-glycerin suppository given 01/07/24
-pt has now had a BM
Other problems:
Hyponatremia, mild
Cervical cancer status post hysterectomy 2002
Ovarian cyst removal
Chronic back pain: Continue celecoxib, pregabalin
Rosacea: Continue doxycycline
FULL/SCDs
Medically stable for d/c.
Total time spent on d/c = 31 min. This included today's physical exam, progress note, review of laboratory and diagnostic data, preparation of discharge documents and prescriptions, and discussions about the pt's hospital course and discharge plan
with the patient and other medical claims representative involved in the patient's care.
Anticipated Discharge: Today
Subjective/Interval History
-
Date of Service: January 08, 2024
Pt has had BM, tolerated diet, still with some abd pain.
Objective Data
-
Vital Signs:
Vital Signs
Temp Pulse Resp BP Pulse Ox
97.8 F 70 17 109/70 96
01/08/24 07:00 01/08/24 07:00 01/08/24 07:00 01/08/24 07:00 01/08/24 07:00
I&O
01/07/24 01/08/24 01/09/24
06:59 06:59 06:59
Intake Total 1919 1080 / 1080
Balance 1919 1080 / 1080
--- NOTE | 2024-01-08 12:56 | CM ---
CM following re: discharge planning.
Reviewed pt's chart, met with pt and pt's at bedside.
Discharge order is noted. Both pt and her are aware and stated he came to transport pt home.
Pt is independent with functional ability [employer]. No after care VN services needs identified.
D/C plan: home no needs. to transport.
--- NOTE | 2024-01-08 13:38 | W.DCSUMMARY ---
Discharge Summary
Discharge Data
Date of Admission: 01/04/24
Date of Discharge: 01/08/24
-
Pending Results: No
Hospital Course
Primary diagnoses:
Acute enteritis with constipation
Secondary diagnoses:
Hyponatremia
Cervical cancer status post hysterectomy 2002
Ovarian cyst removal
Chronic back pain
Rosacea
Consultants:
Gastroenterology
Imaging:
CT A/P: There is significant abnormal wall thickening and enhancement involving small bowel loops, and there appears to be diffuse involvement, although greater involving the mid to distal small bowel. Findings are compatible with enteritis.
Infectious enteritis could be the leading consideration. However, inflammatory bowel disease such as Crohn's disease could also result in this appearance. There is a small to moderate amount of mesenteric edema as well as free fluid within the
pelvis. Small amount of free fluid anterior to the liver in the right upper quadrant. Distended gallbladder with no evidence for calcified gallstones.
Hospital course: 53-year-old female who presented with a chief complaint of abdominal pain as outlined in the H&P done on admission. Patient had a CT scan of the abdomen pelvis as above which was notable for small bowel enteritis. Patient was
initially made n.p.o. and placed on IV fluids. While hospitalized her diet was slowly and progressively advanced and she was tolerating solid food at the time of discharge. Her leukocytosis that was present on admission resolved. She was started
on MiraLAX and given a glycerin suppository. She was able to have a bowel movement prior to discharge. Her abdominal pain improved but did not resolve. She was discharged in medically stable condition.
Discharge Plan
-
Patient Disposition: Home (Routine Discharge)
Discharge Diagnosis/Procedures: enteritis with constipation
Condition: Good
Diet: Low Residue
Activity: No restrictions
Driving Restrictions: As prior to admission
Referrals:
Sly Gottlieb PA-C [Family Provider] - in less than 1 week
Prescriptions:
New
polyethylene glycol 3350 [HealthyLax] 17 gram Powder In Packet
17 g PO BID Qty: 0 0RF
bisacodyl [Dulcolax (bisacodyl)] 10 mg suppository
10 mg [place] DAILY PRN (Reason: constipation) Qty: 30 0RF
Continued
celecoxib 200 mg capsule
200 mg PO DAILY
doxycycline monohydrate 100 mg capsule
100 mg PO DAILY
estradiol 0.5 mg tablet
0.5 mg PO DAILY
pregabalin 50 mg Capsule
50 mg PO TID PRN (Reason: back spasms)
Patient Comments:
01/04/2024: last filled 09/01/22, 90 tabs for 30 days from [facility]
Discharge Orders:
Discharge Patient (As Directed); Ordered 01/08/24
Ordered By: Robert Tomas
Discharge Date and Time
Discharge Date/Time: 01/08/24 12:57
[2024-01-11 19:54] LABS: Calprotectin, Fecal 137 ug/g (<=49)
== END 2024-01-08 12:57 | disposition home or self-care (01) | DRG 392 ==
LOC: 3 WEST ACU 22:16
PROVIDERS: Nurse Practitioner; Nurse Practitioner Adult Health; ADMITTING PHYSICIAN Hospitalist; ATTENDING PHYSICIAN Internal Medicine; CONSULT PHYSICIAN Internal Medicine Gastroenterology; EMERGENCY PHYSICIAN Emergency Medicine; FAMILY PHYSICIAN Physician Assistant
DX: A09 Infectious gastroenteritis and colitis, unspecified (principal); E87.1 Hypo-osmolality and hyponatremia; R60.9 Edema, unspecified; G89.29 Other chronic pain; M54.50 Low back pain, unspecified; L71.9 Rosacea, unspecified; K59.09 Other constipation
CPT/HCPCS: 74177; 80048; 80053; 83690; 83993; 85025; 85027; 86140; 87045; 87046; 87077; 87328; 87329; 87427; 89055; 96374; 96375; 99285; Q9967

== ENCOUNTER 2024-11-15 11:10 | Emergency (ER) | payer BC, SELFPAY ==
[2024-11-15 11:14] VITALS: BP 132/74
--- NOTE | 2024-11-15 11:49 | ED.MUSCINJ ---
HPI-Injury
General
Chief Complaint: Fall
Source: patient
Exam Limitations: none
Time Seen by Provider: 11/15/24 11:39
History of Present Illness-Injury
Initial Injury comments:
54-year-old female presents complaining of left rib pain starting 5 days ago. She fell off a ladder onto a banister of the deck. Hurts to breathe and move. She denies shortness of breath or hemoptysis. No hematuria. No other complaints at this
time.
Past History
Past History
ED Past Surgical History: Gynecological (Hysterectomy) and Orthopedic
Social History
Tobacco: Non-smoker
Alcohol: Occasional
Personal:
Living: with family
Employment: Employed
Phy Exam
Physical Exam
Physical Exam:
General: Well-appearing female no acute respiratory distress
HEENT: Normocephalic atraumatic
Heart: Regular rate and rhythm no murmurs
Lungs: Breath sounds heard in all sim clear
Musculoskeletal exam: Patient is tender over the left lateral ribs without step-off or deformity. There is overlying ecchymosis
Extremities: No cyanosis
Injury Course
Orders/Labs/Results
Orders:
Orders
11/15/24 11:11
Ribs, Left 3 View W/PA Chest CR [CR Ribs-left 3 Vw W/pa Chest] Urgent
Comment:
Reason For Exam: fall
11/15/24 11:48
Lidocaine [Lidocaine 4% Patch] 1 patch TOPICAL NOW STA
Apply Lidocaine patch(s) to:: left ribs
MDM/Problems Addressed
Differential Diagnosis Includes:
Patient with left rib pain after a fall. No hematuria. X-rays left rib demonstrates slightly displaced left lateral ninth rib fracture without pneumothorax. Will apply lidocaine patch. Rojw-hel-hjxguzv medications have not been helping. Will
prescribe a limited number of pain medicine for her to take.
*Critical Care Note
Total Time (30-74mins, 75-104mins- exclusive of procedures): Not Applicable
ED Attending Note
-
Portions of this chart may have been created with voice recognition software.� Occasional wrong word or��sound alike� substitutions may have occurred due to the inherent limitations of voice recognition software.
Discharge Plan
Departure
Patient Disposition: Home (Routine Discharge)
Date of Disposition: 11/15/24
Time of Disposition: 11:51
Patient with high blood pressure during this ER visit?: No
Discharge Problem:
Fracture of rib
Instructions: Rib Fracture
Prescriptions:
New
hydrocodone-acetaminophen 5-325 mg tablet
1 tab PO Q8H PRN (Reason: Pain) Qty: 10 0RF
No Action
celecoxib 200 mg capsule
200 mg PO DAILY
doxycycline monohydrate 100 mg capsule
100 mg PO DAILY
estradiol 0.5 mg tablet
0.5 mg PO DAILY
pregabalin 50 mg Capsule
50 mg PO TID PRN (Reason: back spasms)
Patient Comments:
01/04/2024: last filled 09/01/22, 90 tabs for 30 days from [facility]
polyethylene glycol 3350 [HealthyLax] 17 gram Powder In Packet
17 g PO BID Qty: 0 0RF
bisacodyl [Dulcolax (bisacodyl)] 10 mg suppository
10 mg [place] DAILY PRN (Reason: constipation) Qty: 30 0RF
Stand Alone Forms: Return to Work
Activity Restrictions/Additional Instructions:
Rest. Avoid heavy lifting. Use Lidoderm patches daily. Continue with ibuprofen and take prescribed pain medicine as needed for severe pain.
Interventions
Interventions:
*Risk Screen - Suicide Last Done: 11/15/24 11:14
*Neglect/Abuse Screening Last Done: 11/15/24 11:14
Discharge Date and Time
Print Language: HEBREW
[2024-11-15] MEDS: LIDOCAINE 4% PATCH 1 PATCH TOPICAL (12:01)
== END 2024-11-15 12:26 | disposition home or self-care (01) ==
LOC: EMR 11:10
PROVIDERS: EMERGENCY PHYSICIAN Emergency Medicine; FAMILY PHYSICIAN Physician Assistant
DX: S22.32XA Fracture of one rib, left side, initial encounter for closed fracture (principal); S20.212A Contusion of left front wall of thorax, initial encounter; W11.XXXA Fall on and from ladder, initial encounter
CPT/HCPCS: 99283; 71101

== ENCOUNTER 2025-08-03 18:24 | Emergency (ER) | payer BC, SELFPAY ==
[2025-08-03 18:36] VITALS: BP 112/70
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
[2025-08-03] MEDS: NORCO 7.5/325 1 TABLET PO (21:09)
[2025-08-03] MEDS: ZOFRAN ODT (ORALLY DISINTEGRATING) 4 MG PO (21:10)
== END 2025-08-03 21:20 | disposition home or self-care (01) ==
LOC: EMR 18:24
PROVIDERS: EMERGENCY PHYSICIAN Emergency Medicine; FAMILY PHYSICIAN Physician Assistant
DX: S22.32XA Fracture of one rib, left side, initial encounter for closed fracture (principal); V94.89XA Other water transport accident, initial encounter; Z90.710 Acquired absence of both cervix and uterus
CPT/HCPCS: 99283; 71101